=== PATIENT | male | born 1985 | race African-American/Black ===

== ENCOUNTER 2022-05-26 13:51 | Inpatient (IN) | payer OTHER ==
[2022-05-26 14:20] VITALS: BMI 25.2
[2022-05-26] MEDS ORDERED: guaiFENesin 200 MG/10 ML 10 ML UNIT-DOSE CUPS PO PRN (15:29)
[2022-05-26] MEDS ORDERED: NALOXONE HCL 0.4 MG/ML VIAL IM PRN (15:29)
[2022-05-26] MEDS ORDERED: POLYETHYLENE GLYCOL (HEALTHYLAX) 3350 17 GM PACKET PO PRN (15:29)
[2022-05-26] MEDS ORDERED: P-EPHED 60MG/TRIPROLIDI 2.5MG TABLET PO PRN (15:29)
[2022-05-26] MEDS ORDERED: MAGNESIUM HYDROX 2400MG/30ML ORAL SUSPENSION 30 ML CUP PO PRN (15:29)
[2022-05-26] MEDS ORDERED: ACETAMINOPHEN 325 MG TABLET (FP) PO PRN (15:29)
[2022-05-26] MEDS ORDERED: LOPERAMIDE HCL 2 MG CAPSULE PO PRN (15:29)
[2022-05-26] MEDS ORDERED: BENZOCAINE/MENTHOL (CHLORASEPTIC ) LOZENGE MM PRN (15:29)
[2022-05-26] MEDS ORDERED: NALOXONE HCL (KLOXXADO) 8 MG SPRAY NS PRN (15:29)
[2022-05-26] MEDS ORDERED: MAG HYDROX/AL HYDROX/SIMETH 30 ML UNIT-DOSE CUP PO PRN (15:29)
[2022-05-26] MEDS: NICOTINE 7 MG/24 HOURS TOPICAL PATCH TD SCH (19:45)
[2022-05-26] MEDS: PRENATAL VITAMINS W/ FOLIC ACID TABLET (FP) PO SCH (19:45)
[2022-05-26] MEDS: THIAMINE HCL 100 MG TABLET (FP) PO SCH (21:41)
[2022-05-26] MEDS: MELATONIN 5 MG TABLETS PO SCH (21:41)
[2022-05-27] MEDS: NICOTINE 7 MG/24 HOURS TOPICAL PATCH TD SCH (09:16)
[2022-05-27] MEDS: PRENATAL VITAMINS W/ FOLIC ACID TABLET (FP) PO SCH (09:16)
[2022-05-27 12:04] LABS: HEMATOCRIT 33.3 % (35.4-49); HEMOGLOBIN 11.1 GM/dL (11.7-16.9); MCH 30.9 pg (25.7-33.7); MCHC 33.2 g/dl (32.0-35.9); MEAN CELL VOLUME 93.2 fl (80-96); MEAN PLT VOLUME 8.8 fl (7.5-11.1); PLATELET COUNT 463 10^3/uL (134-434); RBC 3.58 M/mm3 (4.00-5.60); RDW 15.1 % (11.9-15.9); WHITE BLOOD COUNT 12.8 K/mm3 (4.0-10.0)
[2022-05-27 12:12] LABS: URINE APPEARANCE CLEAR; URINE BILIRUBIN NEGATIVE (NEGATIVE); URINE COLOR YELLOW; URINE GLUCOSE (UA) NEGATIVE (NEGATIVE); URINE KETONE NEGATIVE (NEGATIVE); URINE LEUK ESTERASE NEGATIVE (NEGATIVE); URINE NITRITE NEGATIVE (NEGATIVE); URINE PROTEIN NEGATIVE (NEGATIVE)
[2022-05-27 12:27] LABS: ALBUMIN 3.2 g/dl (3.4-5.0); CREATININE 0.8 mg/dL (0.55-1.3)
[2022-05-27 12:28] LABS: BILIRUBIN,TOTAL 0.4 mg/dL (0.2-1); CALCIUM 8.9 mg/dL (8.5-10.1); TOT PROT 6.8 g/dl (6.4-8.2)
[2022-05-27] MEDS ORDERED: BUPRENORPHINE HCL 150 MCG, BUPRENORPHINE HCL 75 MCG BC PRN (15:49)
[2022-05-27] MEDS ORDERED: BUPRENORPHINE HCL 150 MCG, BUPRENORPHINE HCL 75 MCG BC ONE (15:49)
[2022-05-27] MEDS: MELATONIN 5 MG TABLETS PO SCH (21:28)
[2022-05-27] MEDS: THIAMINE HCL 100 MG TABLET (FP) PO SCH (21:28)
[2022-05-28] MEDS ORDERED: BUPRENORPHINE HCL 150 MCG, BUPRENORPHINE HCL 75 MCG BC PRN
[2022-05-28] MEDS: BUPRENORPHINE HCL 150 MCG, BUPRENORPHINE HCL 75 MCG BC SCH ×2 (06:42→18:07)
[2022-05-28] MEDS: PRENATAL VITAMINS W/ FOLIC ACID TABLET (FP) PO SCH (11:07)
[2022-05-28] MEDS: NICOTINE 7 MG/24 HOURS TOPICAL PATCH TD SCH (11:07)
[2022-05-28] MEDS: LACTULOSE 20 GM/30 ML UDC (FOR ORAL USE ONLY) PO SCH ×2 (15:05→21:28)
[2022-05-28] MEDS: MELATONIN 5 MG TABLETS PO SCH (21:27)
[2022-05-28] MEDS: THIAMINE HCL 100 MG TABLET (FP) PO SCH (21:29)
[2022-05-29] MEDS: BUPRENORPHINE HCL 450 MCG FILM BC SCH ×2 (06:54→19:00)
[2022-05-29] MEDS: IBUPROFEN 400 MG TABLET (FP) PO PRN (06:54)
[2022-05-29] MEDS: LACTULOSE 20 GM/30 ML UDC (FOR ORAL USE ONLY) PO SCH ×3 (06:54→22:08)
[2022-05-29] MEDS: NICOTINE 7 MG/24 HOURS TOPICAL PATCH TD SCH (10:00)
[2022-05-29] MEDS: PRENATAL VITAMINS W/ FOLIC ACID TABLET (FP) PO SCH (10:00)
[2022-05-29] MEDS: MELATONIN 5 MG TABLETS PO SCH (22:08)
[2022-05-29] MEDS: THIAMINE HCL 100 MG TABLET (FP) PO SCH (22:08)
[2022-05-30] MEDS: LACTULOSE 20 GM/30 ML UDC (FOR ORAL USE ONLY) PO SCH ×3 (06:45→22:06)
[2022-05-30] MEDS: BUPRENORPHINE/NALOXONE 4 MG/1 MG FILM PACKET SL SCH ×2 (06:46→17:55)
[2022-05-30] MEDS: PRENATAL VITAMINS W/ FOLIC ACID TABLET (FP) PO SCH (10:33)
[2022-05-30] MEDS: NICOTINE 7 MG/24 HOURS TOPICAL PATCH TD SCH (10:33)
[2022-05-30] MEDS: MELATONIN 5 MG TABLETS PO SCH (22:05)
[2022-05-30] MEDS: THIAMINE HCL 100 MG TABLET (FP) PO SCH (22:05)
[2022-05-31] MEDS: LACTULOSE 20 GM/30 ML UDC (FOR ORAL USE ONLY) PO SCH ×3 (06:25→21:04)
[2022-05-31] MEDS: PRENATAL VITAMINS W/ FOLIC ACID TABLET (FP) PO SCH (10:40)
[2022-05-31] MEDS: NICOTINE 7 MG/24 HOURS TOPICAL PATCH TD SCH (10:40)
[2022-05-31] MEDS ORDERED: NICOTINE 7 MG/24 HOURS TOPICAL PATCH TD PRN (15:00)
[2022-05-31] MEDS: BUPRENORPHINE/NALOXONE 4 MG/1 MG FILM PACKET SL SCH ×2 (16:11→21:05)
[2022-05-31] MEDS: NICOTINE 10 MG CARTRIDGE (INHALER) IH PRN (18:41)
[2022-05-31] MEDS: MELATONIN 5 MG TABLETS PO SCH (21:03)
[2022-05-31] MEDS: THIAMINE HCL 100 MG TABLET (FP) PO SCH (21:04)
[2022-06-01] MEDS: LACTULOSE 20 GM/30 ML UDC (FOR ORAL USE ONLY) PO SCH ×3 (06:13→21:20)
[2022-06-01] MEDS: PRENATAL VITAMINS W/ FOLIC ACID TABLET (FP) PO SCH (09:28)
[2022-06-01] MEDS: BUPRENORPHINE/NALOXONE 4 MG/1 MG FILM PACKET SL SCH ×2 (09:28→21:21)
[2022-06-01] MEDS: AMOX TR/POT CLAV 500MG/125MG TABLETS (FP) PO SCH ×2 (12:35→17:17)
[2022-06-01] MEDS: BACITRACIN 0.9 GM PACKET TP SCH ×2 (12:37→21:20)
[2022-06-01] MEDS: THIAMINE HCL 100 MG TABLET (FP) PO SCH (21:20)
[2022-06-01] MEDS: MELATONIN 5 MG TABLETS PO SCH (21:20)
[2022-06-02] MEDS: LACTULOSE 20 GM/30 ML UDC (FOR ORAL USE ONLY) PO SCH ×3 (06:28→21:32)
[2022-06-02] MEDS: AMOX TR/POT CLAV 500MG/125MG TABLETS (FP) PO SCH ×3 (07:13→21:32)
[2022-06-02] MEDS: PRENATAL VITAMINS W/ FOLIC ACID TABLET (FP) PO SCH (10:12)
[2022-06-02] MEDS: BACITRACIN 0.9 GM PACKET TP SCH ×2 (10:12→21:32)
[2022-06-02] MEDS: BUPRENORPHINE/NALOXONE 4 MG/1 MG FILM PACKET SL SCH ×2 (10:12→21:33)
[2022-06-02 10:58] LABS: ALBUMIN 3.9 g/dl (3.4-5.0); BLOOD UREA NITROGEN 15.5 mg/dL (7-18)
[2022-06-02 10:59] LABS: CALCIUM 9.9 mg/dL (8.5-10.1)
[2022-06-02 11:01] LABS: CREATININE 0.7 mg/dL (0.55-1.3)
[2022-06-02 11:03] LABS: BILIRUBIN,TOTAL 0.4 mg/dL (0.2-1); TOT PROT 7.8 g/dl (6.4-8.2)
[2022-06-02] MEDS: NICOTINE 10 MG CARTRIDGE (INHALER) IH PRN (12:41)
[2022-06-02] MEDS: THIAMINE HCL 100 MG TABLET (FP) PO SCH (21:32)
[2022-06-02] MEDS: MELATONIN 5 MG TABLETS PO SCH (21:32)
[2022-06-03] MEDS: LACTULOSE 20 GM/30 ML UDC (FOR ORAL USE ONLY) PO SCH ×3 (06:30→21:19)
[2022-06-03] MEDS: AMOX TR/POT CLAV 500MG/125MG TABLETS (FP) PO SCH ×3 (07:03→16:53)
[2022-06-03] MEDS: PRENATAL VITAMINS W/ FOLIC ACID TABLET (FP) PO SCH (10:11)
[2022-06-03] MEDS: BUPRENORPHINE/NALOXONE 4 MG/1 MG FILM PACKET SL SCH ×2 (10:11→21:19)
[2022-06-03] MEDS: BACITRACIN 0.9 GM PACKET TP SCH ×2 (10:12→21:19)
[2022-06-03] MEDS: MELATONIN 5 MG TABLETS PO SCH (21:19)
[2022-06-03] MEDS: THIAMINE HCL 100 MG TABLET (FP) PO SCH (21:19)
[2022-06-04] MEDS: LACTULOSE 20 GM/30 ML UDC (FOR ORAL USE ONLY) PO SCH ×3 (06:43→21:44)
[2022-06-04] MEDS: AMOX TR/POT CLAV 500MG/125MG TABLETS (FP) PO SCH ×3 (07:03→17:27)
[2022-06-04] MEDS: PRENATAL VITAMINS W/ FOLIC ACID TABLET (FP) PO SCH (10:03)
[2022-06-04] MEDS: BACITRACIN 0.9 GM PACKET TP SCH ×2 (10:04→21:45)
[2022-06-04] MEDS: BUPRENORPHINE/NALOXONE 4 MG/1 MG FILM PACKET SL SCH ×2 (10:04→21:44)
[2022-06-04] MEDS: MELATONIN 5 MG TABLETS PO SCH (21:44)
[2022-06-04] MEDS: THIAMINE HCL 100 MG TABLET (FP) PO SCH (21:44)
[2022-06-05] MEDS: LACTULOSE 20 GM/30 ML UDC (FOR ORAL USE ONLY) PO SCH ×3 (06:23→21:35)
[2022-06-05] MEDS: AMOX TR/POT CLAV 500MG/125MG TABLETS (FP) PO SCH ×3 (07:01→17:16)
[2022-06-05] MEDS: BUPRENORPHINE/NALOXONE 4 MG/1 MG FILM PACKET SL SCH ×2 (10:09→21:36)
[2022-06-05] MEDS: PRENATAL VITAMINS W/ FOLIC ACID TABLET (FP) PO SCH (10:09)
[2022-06-05] MEDS: BACITRACIN 0.9 GM PACKET TP SCH ×2 (10:09→21:35)
[2022-06-05] MEDS: NICOTINE 10 MG CARTRIDGE (INHALER) IH PRN (12:37)
[2022-06-05] MEDS: MELATONIN 5 MG TABLETS PO SCH (21:35)
[2022-06-05] MEDS: THIAMINE HCL 100 MG TABLET (FP) PO SCH (21:35)
[2022-06-06] MEDS: LACTULOSE 20 GM/30 ML UDC (FOR ORAL USE ONLY) PO SCH ×3 (06:29→21:25)
[2022-06-06] MEDS: AMOX TR/POT CLAV 500MG/125MG TABLETS (FP) PO SCH ×3 (07:03→18:21)
[2022-06-06] MEDS: BACITRACIN 0.9 GM PACKET TP SCH ×2 (10:11→21:25)
[2022-06-06] MEDS: PRENATAL VITAMINS W/ FOLIC ACID TABLET (FP) PO SCH (10:11)
[2022-06-06] MEDS: BUPRENORPHINE/NALOXONE 4 MG/1 MG FILM PACKET SL SCH ×2 (10:11→21:25)
[2022-06-06] MEDS: MELATONIN 5 MG TABLETS PO SCH (21:25)
[2022-06-06] MEDS: THIAMINE HCL 100 MG TABLET (FP) PO SCH (21:25)
[2022-06-07] MEDS: LACTULOSE 20 GM/30 ML UDC (FOR ORAL USE ONLY) PO SCH ×3 (06:08→21:18)
[2022-06-07] MEDS: AMOX TR/POT CLAV 500MG/125MG TABLETS (FP) PO SCH ×3 (07:03→17:42)
[2022-06-07] MEDS: PRENATAL VITAMINS W/ FOLIC ACID TABLET (FP) PO SCH (10:11)
[2022-06-07] MEDS: BACITRACIN 0.9 GM PACKET TP SCH ×2 (10:11→21:18)
[2022-06-07] MEDS: BUPRENORPHINE/NALOXONE 4 MG/1 MG FILM PACKET SL SCH ×2 (10:11→21:18)
[2022-06-07] MEDS: NICOTINE 10 MG CARTRIDGE (INHALER) IH PRN (13:41)
[2022-06-07] MEDS: MELATONIN 5 MG TABLETS PO SCH (21:18)
[2022-06-07] MEDS: THIAMINE HCL 100 MG TABLET (FP) PO SCH (21:18)
[2022-06-08] MEDS: LACTULOSE 20 GM/30 ML UDC (FOR ORAL USE ONLY) PO SCH ×3 (06:27→21:20)
[2022-06-08] MEDS: AMOX TR/POT CLAV 500MG/125MG TABLETS (FP) PO SCH (07:03)
[2022-06-08] MEDS: PRENATAL VITAMINS W/ FOLIC ACID TABLET (FP) PO SCH (09:48)
[2022-06-08] MEDS: BACITRACIN 0.9 GM PACKET TP SCH ×2 (09:48→21:20)
[2022-06-08] MEDS: BUPRENORPHINE/NALOXONE 4 MG/1 MG FILM PACKET SL SCH ×2 (09:48→21:20)
[2022-06-08] MEDS: MELATONIN 5 MG TABLETS PO SCH (21:20)
[2022-06-08] MEDS: THIAMINE HCL 100 MG TABLET (FP) PO SCH (21:20)
[2022-06-09] MEDS: LACTULOSE 20 GM/30 ML UDC (FOR ORAL USE ONLY) PO SCH ×2 (06:23→13:36)
[2022-06-09] MEDS: BACITRACIN 0.9 GM PACKET TP SCH ×2 (10:01→21:23)
[2022-06-09] MEDS: PRENATAL VITAMINS W/ FOLIC ACID TABLET (FP) PO SCH (10:01)
[2022-06-09] MEDS: BUPRENORPHINE/NALOXONE 4 MG/1 MG FILM PACKET SL SCH ×2 (10:01→21:24)
[2022-06-09] MEDS: THIAMINE HCL 100 MG TABLET (FP) PO SCH (21:23)
[2022-06-09] MEDS: MELATONIN 5 MG TABLETS PO SCH (21:23)
[2022-06-10] MEDS: BACITRACIN 0.9 GM PACKET TP SCH ×2 (09:37→21:37)
[2022-06-10] MEDS: PRENATAL VITAMINS W/ FOLIC ACID TABLET (FP) PO SCH (09:37)
[2022-06-10] MEDS: BUPRENORPHINE/NALOXONE 4 MG/1 MG FILM PACKET SL SCH ×2 (09:38→21:37)
[2022-06-10] MEDS: THIAMINE HCL 100 MG TABLET (FP) PO SCH (21:37)
[2022-06-10] MEDS: MELATONIN 5 MG TABLETS PO SCH (21:37)
[2022-06-11] MEDS: PRENATAL VITAMINS W/ FOLIC ACID TABLET (FP) PO SCH (09:44)
[2022-06-11] MEDS: BACITRACIN 0.9 GM PACKET TP SCH ×2 (09:44→21:26)
[2022-06-11] MEDS: BUPRENORPHINE/NALOXONE 4 MG/1 MG FILM PACKET SL SCH ×2 (09:45→21:26)
[2022-06-11] MEDS: NICOTINE 10 MG CARTRIDGE (INHALER) IH PRN (12:41)
[2022-06-11] MEDS: THIAMINE HCL 100 MG TABLET (FP) PO SCH (21:26)
[2022-06-11] MEDS: MELATONIN 5 MG TABLETS PO SCH (21:26)
[2022-06-12] MEDS: PRENATAL VITAMINS W/ FOLIC ACID TABLET (FP) PO SCH (10:22)
[2022-06-12] MEDS: BACITRACIN 0.9 GM PACKET TP SCH ×2 (10:22→21:23)
[2022-06-12] MEDS: BUPRENORPHINE/NALOXONE 4 MG/1 MG FILM PACKET SL SCH ×2 (10:23→21:23)
[2022-06-12] MEDS: THIAMINE HCL 100 MG TABLET (FP) PO SCH (21:23)
[2022-06-12] MEDS: MELATONIN 5 MG TABLETS PO SCH (21:23)
[2022-06-13] MEDS: BUPRENORPHINE/NALOXONE 4 MG/1 MG FILM PACKET SL SCH ×2 (09:35→21:24)
[2022-06-13] MEDS: PRENATAL VITAMINS W/ FOLIC ACID TABLET (FP) PO SCH (09:35)
[2022-06-13] MEDS: BACITRACIN 0.9 GM PACKET TP SCH ×2 (10:11→21:24)
[2022-06-13] MEDS: MELATONIN 5 MG TABLETS PO SCH (21:24)
[2022-06-13] MEDS: THIAMINE HCL 100 MG TABLET (FP) PO SCH (21:24)
[2022-06-14] MEDS: BUPRENORPHINE/NALOXONE 4 MG/1 MG FILM PACKET SL SCH ×2 (09:06→21:20)
[2022-06-14] MEDS: BACITRACIN 0.9 GM PACKET TP SCH ×2 (09:06→21:20)
[2022-06-14] MEDS: PRENATAL VITAMINS W/ FOLIC ACID TABLET (FP) PO SCH (09:06)
[2022-06-14] MEDS: NICOTINE 10 MG CARTRIDGE (INHALER) IH PRN (10:30)
[2022-06-14] MEDS: IBUPROFEN 400 MG TABLET (FP) PO PRN (11:33)
[2022-06-14] MEDS: THIAMINE HCL 100 MG TABLET (FP) PO SCH (21:19)
[2022-06-14] MEDS: MELATONIN 5 MG TABLETS PO SCH (21:19)
[2022-06-15 06:50] VITALS: BP 112/69; PULSE 68; RESP 18; TEMP 98
[2022-06-15] MEDS: BUPRENORPHINE/NALOXONE 4 MG/1 MG FILM PACKET SL SCH (09:16)
[2022-06-15] MEDS: PRENATAL VITAMINS W/ FOLIC ACID TABLET (FP) PO SCH (09:16)
[2022-06-15] MEDS: BACITRACIN 0.9 GM PACKET TP SCH (09:16)
== END 2022-06-15 09:48 | disposition home or self-care (01) | DRG 772 ==
LOC: YASAS 13:51 → Y3W 19:13
PROVIDERS: ADMIT Allergy & Immunology; ATTEND Psychiatry & Neurology Pain Medicine
PROC: HZ42ZZZ Group Counseling for Substance Abuse Treatment, Cognitive-Behavioral (ICD-10-PCS; principal; 2022-05-26)
DX: F11.20 Opioid dependence, uncomplicated (principal); F13.20 Sedative, hypnotic or anxiolytic dependence, uncomplicated; F14.10 Cocaine abuse, uncomplicated; F17.210 Nicotine dependence, cigarettes, uncomplicated; E72.20 Disorder of urea cycle metabolism, unspecified; L02.413 Cutaneous abscess of right upper limb; R26.89 Other abnormalities of gait and mobility; R74.01 Elevation of levels of liver transaminase levels; R74.8 Abnormal levels of other serum enzymes
CPT/HCPCS: 36415; 71045-TC-FY; 80053; 81003; 82140; 82962; 85027; 86780; 86803; 87522; 87811; 93005; 93010; C9803-CS; U0003; U0005

== ENCOUNTER 2023-05-10 15:25 | Inpatient (IN) | payer OTHER ==
[2023-05-10 16:25] VITALS: BMI 28.8
[2023-05-10] MEDS ORDERED: NICOTINE POLACRILEX 2 MG GUM BUC PRN (20:25)
[2023-05-10] MEDS ORDERED: guaiFENesin 600 MG TABLET.ER (FP) PO PRN (20:25)
[2023-05-10] MEDS ORDERED: IBUPROFEN 600 MG TABLET (FP) PO PRN (20:25)
[2023-05-10] MEDS ORDERED: BENZONATATE 200 MG CAPSULE PO PRN (20:25)
[2023-05-10] MEDS ORDERED: MAG HYDROX/AL HYDROX/SIMETH 30 ML UNIT-DOSE CUP PO PRN (20:25)
[2023-05-10] MEDS ORDERED: IBUPROFEN 400 MG TABLET (FP) PO PRN (20:25)
[2023-05-10] MEDS ORDERED: POLYETHYLENE GLYCOL (HEALTHYLAX) 3350 17 GM PACKET PO PRN (20:25)
[2023-05-10] MEDS ORDERED: P-EPHED 60MG/TRIPROLIDI 2.5MG TABLET PO PRN (20:25)
[2023-05-10] MEDS ORDERED: LOPERAMIDE HCL 2 MG CAPSULE PO PRN (20:25)
[2023-05-10] MEDS ORDERED: ACETAMINOPHEN 325 MG TABLET (FP) PO PRN (20:25)
[2023-05-10] MEDS ORDERED: BENZOCAINE/MENTHOL (CHLORASEPTIC ) LOZENGE MM PRN (20:25)
[2023-05-10] MEDS ORDERED: COLLOIDAL OATMEAL 1 BAR EACH TP PRN (20:25)
[2023-05-10] MEDS ORDERED: hydrOXYzine PAMOATE 25 MG CAPSULE (FP) PO PRN (20:25)
[2023-05-10] MEDS ORDERED: MAGNESIUM HYDROX 2400MG/30ML ORAL SUSPENSION 30 ML CUP PO PRN (20:25)
[2023-05-10] MEDS: MELATONIN 5 MG TABLETS PO SCH (22:46)
[2023-05-10] MEDS: THIAMINE HCL 100 MG TABLET (FP) PO SCH (22:46)
[2023-05-11 00:30] LABS: PH,URINE 6.5 (5.0-8.0); URINE APPEARANCE CLEAR; URINE BILIRUBIN NEGATIVE (NEGATIVE); URINE COLOR YELLOW; URINE GLUCOSE (UA) NEGATIVE (NEGATIVE); URINE KETONE TRACE (NEGATIVE); URINE LEUK ESTERASE NEGATIVE (NEGATIVE); URINE NITRITE NEGATIVE (NEGATIVE); URINE PROTEIN TRACE (NEGATIVE)
[2023-05-11] MEDS: PRENATAL VITAMINS W/ FOLIC ACID TABLET (FP) PO SCH (10:18)
[2023-05-11 10:46] LABS: CHLORIDE 107 mmol/L (98-107); POTASSIUM 3.7 mmol/L (3.5-5.1); SODIUM 139 mmol/L (136-145)
[2023-05-11 10:52] LABS: HEMATOCRIT 39.3 % (35.4-49); HEMOGLOBIN 13.1 GM/dL (11.7-16.9); MCH 31.7 pg (25.7-33.7); MCHC 33.3 g/dl (32.0-35.9); MEAN CELL VOLUME 95.2 fl (80-96); MEAN PLT VOLUME 9.3 fl (7.5-11.1); PLATELET COUNT 331 10^3/uL (134-434); RBC 4.13 M/mm3 (4.00-5.60); RDW 13.2 % (11.9-15.9); WHITE BLOOD COUNT 9.8 K/mm3 (4.0-10.0)
[2023-05-11 11:16] LABS: ALBUMIN 3.6 g/dl (3.4-5.0); ANION GAP 8 mmol/L (4-13); BLOOD UREA NITROGEN 15.4 mg/dL (7-18); CALCIUM 8.7 mg/dL (8.5-10.1); CO2 25 mmol/L (21-32); GLUCOSE,RANDOM 151 mg/dL (74-106)
[2023-05-11 11:19] LABS: CREATININE 0.8 mg/dL (0.55-1.3); SGOT/AST 82 U/L (15-37); SGPT/ALT 164 U/L (13-61)
[2023-05-11 11:21] LABS: ALK PHOS 105 U/L (45-117); BILIRUBIN,TOTAL 0.8 mg/dL (0.2-1); TOT PROT 7.5 g/dl (6.4-8.2)
[2023-05-11 12:14] LABS: SYPHILIS W/ RPR CONF NON-REACTIVE (NONREACTIVE)
[2023-05-11] MEDS: MELATONIN 5 MG TABLETS PO SCH (21:27)
[2023-05-11] MEDS: THIAMINE HCL 100 MG TABLET (FP) PO SCH (21:27)
[2023-05-12] MEDS: PRENATAL VITAMINS W/ FOLIC ACID TABLET (FP) PO SCH (10:08)
[2023-05-12] MEDS: MELATONIN 5 MG TABLETS PO SCH (21:43)
[2023-05-12] MEDS: THIAMINE HCL 100 MG TABLET (FP) PO SCH (21:44)
[2023-05-13] MEDS: PRENATAL VITAMINS W/ FOLIC ACID TABLET (FP) PO SCH (11:07)
[2023-05-13] MEDS: MELATONIN 5 MG TABLETS PO SCH (21:50)
[2023-05-13] MEDS: THIAMINE HCL 100 MG TABLET (FP) PO SCH (21:50)
[2023-05-14] MEDS: PRENATAL VITAMINS W/ FOLIC ACID TABLET (FP) PO SCH (09:51)
[2023-05-14] MEDS: THIAMINE HCL 100 MG TABLET (FP) PO SCH (21:51)
[2023-05-14] MEDS: MELATONIN 5 MG TABLETS PO SCH (21:51)
[2023-05-15] MEDS: PRENATAL VITAMINS W/ FOLIC ACID TABLET (FP) PO SCH (10:28)
[2023-05-15] MEDS: THIAMINE HCL 100 MG TABLET (FP) PO SCH (21:40)
[2023-05-15] MEDS: MELATONIN 5 MG TABLETS PO SCH (21:40)
[2023-05-16] MEDS: PRENATAL VITAMINS W/ FOLIC ACID TABLET (FP) PO SCH (10:10)
[2023-05-16] MEDS: THIAMINE HCL 100 MG TABLET (FP) PO SCH (22:33)
[2023-05-16] MEDS: MELATONIN 5 MG TABLETS PO SCH (22:33)
[2023-05-17] MEDS: PRENATAL VITAMINS W/ FOLIC ACID TABLET (FP) PO SCH (10:18)
[2023-05-17] MEDS: MELATONIN 5 MG TABLETS PO SCH (22:29)
[2023-05-17] MEDS: THIAMINE HCL 100 MG TABLET (FP) PO SCH (22:29)
[2023-05-18] MEDS: PRENATAL VITAMINS W/ FOLIC ACID TABLET (FP) PO SCH (10:09)
[2023-05-18] MEDS: THIAMINE HCL 100 MG TABLET (FP) PO SCH (21:46)
[2023-05-18] MEDS: MELATONIN 5 MG TABLETS PO SCH (21:46)
[2023-05-19] MEDS: PRENATAL VITAMINS W/ FOLIC ACID TABLET (FP) PO SCH (11:12)
[2023-05-19] MEDS: MELATONIN 5 MG TABLETS PO SCH (21:32)
[2023-05-19] MEDS: THIAMINE HCL 100 MG TABLET (FP) PO SCH (21:32)
[2023-05-20] MEDS: PRENATAL VITAMINS W/ FOLIC ACID TABLET (FP) PO SCH (10:00)
[2023-05-20] MEDS: MELATONIN 5 MG TABLETS PO SCH (21:42)
[2023-05-20] MEDS: THIAMINE HCL 100 MG TABLET (FP) PO SCH (21:43)
[2023-05-21] MEDS: PRENATAL VITAMINS W/ FOLIC ACID TABLET (FP) PO SCH (10:22)
[2023-05-21] MEDS: THIAMINE HCL 100 MG TABLET (FP) PO SCH (21:35)
[2023-05-21] MEDS: MELATONIN 5 MG TABLETS PO SCH (21:35)
[2023-05-22] MEDS: PRENATAL VITAMINS W/ FOLIC ACID TABLET (FP) PO SCH (10:20)
[2023-05-22] MEDS: THIAMINE HCL 100 MG TABLET (FP) PO SCH (21:33)
[2023-05-22] MEDS: MELATONIN 5 MG TABLETS PO SCH (21:33)
[2023-05-23] MEDS: PRENATAL VITAMINS W/ FOLIC ACID TABLET (FP) PO SCH (11:23)
[2023-05-23] MEDS: MELATONIN 5 MG TABLETS PO SCH (21:17)
[2023-05-23] MEDS: THIAMINE HCL 100 MG TABLET (FP) PO SCH (21:17)
[2023-05-24 07:08] VITALS: PULSE 60; RESP 16; TEMP 97.7
[2023-05-24 09:16] VITALS: BP 107/62
== END 2023-05-24 09:36 | disposition home or self-care (01) | DRG 772 ==
LOC: YASAS 15:25 → Y3W 22:03
PROVIDERS: ADMIT Allergy & Immunology; ATTEND Psychiatry & Neurology Pain Medicine
PROC: HZ42ZZZ Group Counseling for Substance Abuse Treatment, Cognitive-Behavioral (ICD-10-PCS; principal; 2023-05-10)
DX: F14.20 Cocaine dependence, uncomplicated (principal); F13.10 Sedative, hypnotic or anxiolytic abuse, uncomplicated; F17.210 Nicotine dependence, cigarettes, uncomplicated
CPT/HCPCS: 36415; 80053; 80307; 81003; 82962; 85027; 86780; 86803; 87522; 87635